=== PATIENT | female | born 1990 | race African-American/Black ===

== ENCOUNTER 2018-02-24 13:43 | Emergency (ER) | payer SELFPAY ==
[~2018-02-24] VITALS: Ht 162.6 cm; Wt 68.0 kg
[2018-02-24 14:30] VITALS: BP 112/63
--- NOTE | 2018-02-24 14:51 | PHYS DOC ---
Past Medical History Past Medical History: No Pertinent History Past Surgical History: Tubal ligation Alcohol Use: Occasionally Drug Use: None Adult General Chief Complaint Chief Complaint: LACERATION/AVULSION HPI HPI Patient is a 27 year old female presents for evaluation of laceration to the dorsal right hand. She accidentally cut her hand with broken glass. She is unsure of the date of her last tetanus immunization. Denies other injuries. Review of Systems Review of Systems Constitutional: Denies fever or chills [] Eyes: Denies change in visual acuity, redness, or eye pain [] HENT: Denies nasal congestion or sore throat [] Musculoskeletal: Denies back pain or joint pain [] Integument: Laceration Neurologic: Denies headache, focal weakness or sensory changes [] Endocrine: Denies polyuria or polydipsia [] All other systems were reviewed and found to be within normal limits, except as documented in this note. Current Medications Current Medications Current Medications Medications (Trade) Dose Ordered Sig/Lauri Start Time Stop Time Status Last Admin Dose Admin Diphtheria/ Tetanus/Acell Pertussis (Boostrix) 0.5 ml ONCE ONCE 02/24/18 15:00 02/24/18 15:01 Allergies Allergies Allergies Coded Allergies Type Severity Reaction Last Updated Verified No Known Drug Allergies 01/20/16 No Physical Exam Physical Exam Constitutional: Well developed, well nourished, no acute distress, non-toxic appearance. [] Skin: One centimeter superficial laceration to the dorsal right hand over 2nd MCP[] Extremities: No tenderness, no cyanosis, no clubbing, ROM intact, no edema. [] Neurologic: Alert and oriented X 3, normal motor function, normal sensory function, no focal deficits noted. [] Psychologic: Affect normal, judgement normal, mood normal. [] Current Patient Data Vital Signs Vital Signs Date Time Temp Pulse Resp B/P (MAP) Pulse Ox O2 Delivery O2 Flow Rate FiO2 02/24/18 14:30 97.8 65 16 112/63 (79) 98 Room Air 97.8 EKG EKG [] Radiology/Procedures Radiology/Procedures [Laceration Repair by me: Anesthesia: Location: Dorsal right hand Tendon/Joint/Nerves: No injury Foreign body: None detected after copious irrigation and exploration Technique: Dermabond Complexity: No subcutaneous sutures/mucosal repair/edge excision Post Closure Length: 1 cm Patient's bleeding was easily controlled in the department and there is no indication of anemia. No evidence of compartment syndrome, neurologic injury, vascular injury, open joint, tendon laceration, or foreign body. Patient is appropriate for outpatient follow up. 48 hour wound check. Scar minimization instructions given.] Impressions: Laceration Course & Med Decision Making Course & Med Decision Making Pertinent Labs and Imaging studies reviewed. (See chart for details) [] Dragon Disclaimer Dragon Disclaimer This electronic medical record was generated, in whole or in part, using a voice recognition dictation system. 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
[2018-02-24] MEDS ORDERED: DIPHTH,PERTUSS(ACELL),TET TOX 0.5 ML DISP.SYRIN. VAX IM ONE (15:00)
== END 2018-02-24 15:08 | disposition home or self-care (01) ==
LOC: ER 13:43
DX: S61.411A Laceration without foreign body of right hand, initial encounter (principal); Z98.51 Tubal ligation status; W25.XXXA Contact with sharp glass, initial encounter; Y93.89 Activity, other specified; Y92.89 Other specified places as the place of occurrence of the external cause; Y99.8 Other external cause status
CPT/HCPCS: 12001; 90471; 90715; 99283

== ENCOUNTER 2019-03-13 21:16 | Emergency (ER) | payer SELFPAY ==
[~2019-03-13] VITALS: Ht 165.1 cm; Wt 72.6 kg
[2019-03-13 21:35] VITALS: BP 118/56
--- NOTE | 2019-03-13 23:20 | PHYS DOC ---
Past Medical History Past Medical History: No Pertinent History Past Surgical History: Tubal ligation Alcohol Use: Occasionally Drug Use: None Adult General Chief Complaint Chief Complaint: LOWER EXT PAIN HPI HPI Patient is a 28 year old female who presents to the emergency Department with concerns of bruising along the inner aspect of her left lower thigh and proximal left calf. Patient denies any known injury. She states she noticed wheezing after having a deep tissue massage today. Patient denies any history of blood clots, shortness of breath, chest pain, palpitations, fever, numbness, tingling, or weakness. She states that the area only hurts if it is touched it feels sore. Currently she denies any pain at rest All other ROS is neg unless otherwise noted in HPI. Review of Systems Review of Systems See Above Allergies Allergies Allergies Coded Allergies Type Severity Reaction Last Updated Verified No Known Drug Allergies 01/20/16 No Physical Exam Physical Exam See Above Constitutional: Well developed, well nourished, no acute distress, non-toxic appearance. [] HENT: Normocephalic, atraumatic, bilateral external ears normal, nose normal. [] Eyes: PERRLA, EOMI, conjunctiva normal, no discharge. [] Neck: Normal range of motion, no stridor. [] Cardiovascular:Heart rate regular rhythm Lungs & Thorax: Respirations even and unlabored, no retractions, no respiratory distress Skin: Warm, dry, no erythema, no rash; several oval fingerprint-sized bruises noted along the distal inner left thigh and inner proximal left calf consistent with bruising after recent deep tissue massage[] Extremities: LLE: No bony tenderness, no cyanosis, no deformity, ROM intact, no edema. [] Neurologic: Alert and oriented X 3, no focal deficits noted. [] Psychologic: Affect normal, judgement normal, mood normal. [] Current Patient Data Vital Signs Vital Signs Date Time Temp Pulse Resp B/P (MAP) Pulse Ox O2 Delivery O2 Flow Rate FiO2 03/13/19 21:35 98.9 59 16 118/56 (76) 98 Room Air 98.9 EKG EKG [] Radiology/Procedures Radiology/Procedures [] Course & Med Decision Making Course & Med Decision Making Pertinent Labs and Imaging studies reviewed. (See chart for details) dx: medical screening exam A medical screening exam was performed, patient was found to have no emergent medical condition. The plan of care would've included providing patient with information about contusions. However, the patient eloped after talking with registration. [] [] Dragon Disclaimer Dragon Disclaimer This electronic medical record was generated, in whole or in part, using a voice recognition dictation system. Departure Departure Impression: Primary Impression: Encounter for medical screening examination Disposition: 07 AGAINST MEDICAL ADVICE (pt left after being advised elmer tration would come speak to them) Condition: LEFT WITHOUT BEING SEEN Referrals: NO PCP (PCP) MARICHUY CALL DOG SITTER Mar 13, 2019 23:20
== END 2019-03-13 22:33 | disposition left against medical advice (07) ==
LOC: ER 21:16
DX: S70.12XA Contusion of left thigh, initial encounter (principal); S80.12XA Contusion of left lower leg, initial encounter; Z98.51 Tubal ligation status; X58.XXXA Exposure to other specified factors, initial encounter; Y93.89 Activity, other specified; Y92.89 Other specified places as the place of occurrence of the external cause; Y99.8 Other external cause status
CPT/HCPCS: 99281